=== PATIENT | male | born 1980 | race Caucasian/White ===

== ENCOUNTER 2019-11-15 19:09 | Emergency (ER) | payer SELFPAY ==
[~2019-11-15] VITALS: Ht 180.3 cm; Wt 76.0 kg
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
[2019-11-15] MEDS ORDERED: oxyCODONE/APAP 5/325 1 TAB TABLET PO ONE (20:30)
[2019-11-15] MEDS ORDERED: ORPHENADRINE CITRATE 60 MG/2 ML VIAL. IM ONE (20:45)
[2019-11-15] MEDS ORDERED: CYCL-331 PO (20:52)
[2019-11-15] MEDS ORDERED: OXYC-325 PO (20:52)
[2019-11-15 21:40] VITALS: BP 150/87
== END 2019-11-15 21:44 | disposition home or self-care (01) ==
LOC: ER 19:09
DX: S01.00XA Unspecified open wound of scalp, initial encounter (principal); S01.302A Unspecified open wound of left ear, initial encounter; Z88.0 Allergy status to penicillin; W34.09XA Accidental discharge from other specified firearms, initial encounter; Y93.89 Activity, other specified; Y92.89 Other specified places as the place of occurrence of the external cause; Y99.8 Other external cause status
CPT/HCPCS: 70250; 70450; 72040; 72125; 96372; 99285; J2360

== ENCOUNTER 2019-12-30 15:51 | Emergency (ER) | payer SELFPAY ==
[~2019-12-30] VITALS: Ht 180.3 cm; Wt 75.0 kg
[~2019-12-30 15:51] MED LIST: CYCL-331 PO; OXYC-325 PO
[2019-12-30 15:54] VITALS: BP 150/87
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
== END 2019-12-30 16:33 | disposition home or self-care (01) ==
LOC: ER 15:51
DX: F41.8 Other specified anxiety disorders (principal); F20.9 Schizophrenia, unspecified; F31.9 Bipolar disorder, unspecified; F17.210 Nicotine dependence, cigarettes, uncomplicated; Z88.0 Allergy status to penicillin
CPT/HCPCS: 96372; 99283; J2060

== ENCOUNTER 2020-09-20 22:02 | Emergency (ER) | payer SELFPAY ==
[~2020-09-20] VITALS: Ht 180.3 cm; Wt 75.0 kg
[2020-09-20 22:02] VITALS: BP 163/103
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
--- NOTE | 2020-09-20 22:29 | RAD ---
Exam: Chest one view INDICATION: Dyspnea TECHNIQUE: Frontal view of the chest Comparisons: None FINDINGS: The cardiomediastinal silhouette and pulmonary vessels are within normal limits. The lung and pleural spaces are clear. IMPRESSION: No acute cardiopulmonary process. Electronically signed by: Tyrone Danielson MD (09/20/2020 10:27 PM) [facility]
[2020-09-20] MEDS ORDERED: LORazepam 1 MG TABLET PO ONE (22:30)
[2020-09-20] MEDS ORDERED: IV RINGERS SOLUTION,LACTATED 1,000 ML IV SCH (22:30)
[2020-09-20] MEDS ORDERED: NICOTINE 21MG PATCH. TD ONE (22:30)
[2020-09-20 23:07] LABS: BASO % 0 % (0-3); EOS # 0.2 x10^3/uL (0.0-0.7); EOS % 2 % (0-3); HEMATOCRIT 48.1 % (39.0-53.0); HEMOGLOBIN 16.1 g/dL (13.0-17.5); LYMPH # 2.1 x10^3/uL (1.0-4.8); LYMPH % 24 % (24-48); MEAN CORPUSCULAR HEMOGLOBIN 32 pg (25-35); MEAN CORPUSCULAR HGB CONC 33 g/dL (31-37); MEAN CORPUSCULAR VOLUME 96 fL (79-100); MONO # 0.8 x10^3/uL (0.0-1.1); MONO % 9 % (0-9); NEUT # 5.6 x10^3uL (1.8-7.7); NEUT % 65 % (31-73); PLATELET COUNT 294 x10^3/uL (140-400); RED BLOOD COUNT 5.04 x10^6/uL (4.30-5.70); RED CELL DISTRIBUTION WIDTH 13.3 % (11.5-14.5); WHITE BLOOD COUNT 8.6 x10^3/uL (4.0-11.0)
[2020-09-20 23:24] LABS: BILIRUBIN,URINE NEG (NEG); CLARITY,URINE CLEAR; COLOR,URINE YELLOW; GLUCOSE,URINE NEG (NEG); NITRITE,URINE NEG (NEG); UROBILINOGEN,URINE 0.2 mg/dL (0.2 mg/dL)
[2020-09-20 23:25] LABS: BACTERIA,URINE 0 /HPF (0-FEW); RBC,URINE OCC /HPF (0-2); SQUAMOUS EPITHELIAL CELL,UR OCC /LPF; WBC,URINE OCC /HPF (0-4)
--- NOTE | 2020-09-20 23:26 | EKG ---
[address] [address] Test Date: 2020-09-20 Test Time: 22:59:54 Pat Name: HALLE SHOCK Department: Room: Gender: M Olive Packer: : 1980 Requested By: ROGELIO LEON Order Number: [id number] Reading MD: Measurements Intervals [place] Rate: 79 P: 56 NH: 134 QRS: 70 QRSD: 82 T: 28 QT: 364 QTc: 418 Interpretive Statements SINUS RHYTHM ATRIAL PREMATURE COMPLEX(ES) OTHERWISE NORMAL ECG RI6.01 No previous ECG available for comparison
[2020-09-20 23:27] LABS: ANION GAP 11 (6-14); BLOOD UREA NITROGEN 15 mg/dL (8-26); CALCIUM 8.9 mg/dL (8.5-10.1); CARBON DIOXIDE 27 mmol/L (21-32); CHLORIDE 104 mmol/L (98-107); CREATININE 1.2 mg/dL (0.7-1.3); GFR 67.1; GLUCOSE 90 mg/dL (70-99); POTASSIUM 3.8 mmol/L (3.5-5.1); SODIUM 142 mmol/L (136-145)
[2020-09-20 23:27] LABS: BARBITURATES NEG (NEG); BENZODIAZEPINES NEG (NEG); CANNABINOIDS POS (NEG); COCAINE NEG (NEG); METHADONE NEG (NEG); OPIATES NEG (NEG); PHENCYCLIDINE NEG (NEG)
[2020-09-20 23:28] LABS: AMPHETAMINE/METHAMPHETAMINE NEG (NEG)
[2020-09-20 23:34] LABS: ALBUMIN 4.1 g/dL (3.4-5.0); ALK PHOS 112 U/L (46-116); ALT (SGPT) 42 U/L (16-63); AST (SGOT) 35 U/L (15-37); DIRECT BILIRUBIN 0.1 mg/dL (0.0-0.2); MAGNESIUM 2.3 mg/dL (1.8-2.4); TOTAL BILIRUBIN 0.2 mg/dL (0.2-1.0); TOTAL PROTEIN 8.2 g/dL (6.4-8.2)
[2020-09-21] MEDS ORDERED: DIVALPROEX ER 500 MG TAB.ER.24H PO ONE (00:30)
== END 2020-09-21 00:45 | disposition home or self-care (01) ==
LOC: ER 22:02
DX: F31.9 Bipolar disorder, unspecified (principal); F25.0 Schizoaffective disorder, bipolar type; F41.9 Anxiety disorder, unspecified; Z88.0 Allergy status to penicillin
CPT/HCPCS: 36415; 71045; 80048; 80076; 80164; 80307; 81001; 82550; 83735; 84443; 84484; 85025; 93005; 96360; 96361; 99285; J7120; 96365; 96366

== ENCOUNTER 2020-10-23 02:09 | Emergency (ER) | payer SELFPAY ==
[~2020-10-23] VITALS: Ht 180.3 cm; Wt 74.3 kg
[2020-10-23] MEDS ORDERED: ONDANSETRON ODT 4 MG TAB.RAPDIS ONE (02:36)
[2020-10-23] MEDS ORDERED: IOHEXOL 350 MG/ML 100 ML VIAL. IV ONE (03:15)
[2020-10-23] MEDS ORDERED: CONTRAST GIVEN. MC PRN (03:15)
[2020-10-23 03:20] LABS: BASO # 0.1 x10^3/uL (0.0-0.2); BASO % 1 % (0-3); EOS # 0.1 x10^3/uL (0.0-0.7); EOS % 1 % (0-3); HEMATOCRIT 44.5 % (39.0-53.0); HEMOGLOBIN 14.8 g/dL (13.0-17.5); LYMPH # 2.1 x10^3/uL (1.0-4.8); LYMPH % 19 % (24-48); MEAN CORPUSCULAR HEMOGLOBIN 32 pg (25-35); MEAN CORPUSCULAR HGB CONC 33 g/dL (31-37); MEAN CORPUSCULAR VOLUME 95 fL (79-100); MONO # 0.9 x10^3/uL (0.0-1.1); MONO % 8 % (0-9); NEUT # 8.2 x10^3uL (1.8-7.7); NEUT % 71 % (31-73); PLATELET COUNT 254 x10^3/uL (140-400); RED BLOOD COUNT 4.69 x10^6/uL (4.30-5.70); WHITE BLOOD COUNT 11.5 x10^3/uL (4.0-11.0)
[2020-10-23 03:32] LABS: CALCIUM 8.8 mg/dL (8.5-10.1); CREATININE 0.8 mg/dL (0.7-1.3); GFR 106.5; POTASSIUM 3.4 mmol/L (3.5-5.1)
[2020-10-23] MEDS ORDERED: ONDANSETRON ODT 4 MG TAB.RAPDIS PO ONE (04:00)
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
[2020-10-23 04:46] VITALS: BP 127/96
[2020-10-23] MEDS ORDERED: HYDR-2155 PO (04:53)
== END 2020-10-23 05:00 | disposition home or self-care (01) ==
LOC: ER 02:09
DX: S11.93XA Puncture wound without foreign body of unspecified part of neck, initial encounter (principal); F20.9 Schizophrenia, unspecified; F31.9 Bipolar disorder, unspecified; F17.210 Nicotine dependence, cigarettes, uncomplicated; Z88.0 Allergy status to penicillin; X95.8XXA Assault by other firearm discharge, initial encounter; Y93.89 Activity, other specified; Y92.89 Other specified places as the place of occurrence of the external cause; Y99.8 Other external cause status
CPT/HCPCS: 36415; 70496; 70498; 71260; 74177; 80048; 85025; 86850; 86900; 86901; 96374; 99285; J3010; Q0162; Q9967

== ENCOUNTER 2021-01-16 12:22 | Emergency (ER) | payer SELFPAY ==
[~2021-01-16] VITALS: Ht 180.3 cm; Wt 70.2 kg
[2021-01-16 12:22] VITALS: BP 132/88
[~2021-01-16 12:22] MED LIST changes: +HYDR-2155 PO
[2021-01-16] MEDS ORDERED: KETOROLAC 30 MG/ML VIAL. IVP ONE (12:45)
[2021-01-16] MEDS ORDERED: ONDANSETRON PF 4 MG/2 ML VIAL. IVP ONE (12:45)
[2021-01-16] MEDS ORDERED: IV NORMAL SALINE 1,000ML 1,000 ML IV ONE (12:45)
[2021-01-16] MEDS ORDERED: IBUPROFEN 600 MG TABLET. PO ONE (13:00)
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
== END 2021-01-16 14:29 | disposition home or self-care (01) ==
LOC: ER 12:22
DX: S62.635A Displaced fracture of distal phalanx of left ring finger, initial encounter for closed fracture (principal); M54.2 Cervicalgia; W23.0XXA Caught, crushed, jammed, or pinched between moving objects, initial encounter; Y93.89 Activity, other specified; Y92.89 Other specified places as the place of occurrence of the external cause; Y99.8 Other external cause status
CPT/HCPCS: 29130; 70450; 72125; 73140; 99285-25